=== PATIENT | female | born 1965 | race Hispanic/Latino ===

== ENCOUNTER 2017-06-12 07:41 | Outpatient (CLI) | payer OTHER ==
--- NOTE | 2017-06-12 08:40 | MMO ---
BILATERAL SCREENING MAMMOGRAM: DATE: 06/12/17 HISTORY: 51-year-old female for screening mammography. COMPARISON: 03/19/16, 03/11/15, 03/08/14. FINDINGS: Bilateral MLO and CC views of the breasts show heterogeneously dense breast parenchyma, which may low er the sensitivity of mammography. Biopsy clips are seen in the right breast. There is no evidence of suspicious mass, suspicious cluster of microcalcifications, or area of architectural distortion. Interpretation of this mammogram was performed with the assistance of computer-aided detection. IMPRESSION: BIRADS 2: Benign Finding(s) Annual screening mammography is recommended. POS: SIVAKUMAR
== END 2017-06-12 07:42 | disposition home or self-care (01) ==
LOC: SCSMAMMO 07:41
PROVIDERS: ATTEND Family Medicine
DX: Z12.31 Encounter for screening mammogram for malignant neoplasm of breast (principal)
CPT/HCPCS: 77067; G0202

== ENCOUNTER 2017-10-08 11:31 | Outpatient (CLI) | payer OTHER ==
--- NOTE | 2017-10-09 12:05 | CT ---
CT ABDOMEN AND PELVIS NONCONTRAST: 10/09/2017 HISTORY: Hematuria. COMPARISON: 05/26/2016 FINDINGS: There is a small left pleural effusion, which is an interval change from the prior exam, with associa elier mild passive atelectasis. There is minimal patchy parenchymal and slight linear and reticulonodu lar densities at right lung base, which could be related to pneumonitis. Post cholecystectomy changes are noted. There is a nonobstructing, approximately 3 mm calculus in the superior pole right kidney. There are two approximately 3 mm, nonobstructing, superior pole right renal calculi. No additional renal calcu li are seen bilaterally, and there is no evidence of a ureteral calculus. There has been interval development of a hypodense, exophytic inferior pole cystic lesion, measuring 4.7 cm, which, on noncontrast imaging, does demonstrate fluid attenuation and likely represents a jere al cyst. There is a subcentimeter, [id number], hypodense lesion of the superior pole left kidney with a slightly larger hypodense lesion within the mid portion left kidney, which measure s 1.8 cm, and also demonstrates fluid attenuation on the pre-contrast imaging, suggesting a cyst. There is no hydronephrosis present. The liver, spleen, pancreas, right adrenal glands, and urinary bladder demonstrate a grossly normal n onenhanced CT appearance. A 1.8 cm left adrenal nodule is now seen on this examination, which was not seen on the prior study; however, this does demonstrate an attenuation coefficient, most suggestive of an adrenal adenoma. There is colonic diverticulosis. The appendix is visualized and is normal in caliber. There is a small amount of retained fecal material seen throughout the colon. The uterus is not visualized, likely related to a hysterectomy. Vascular calcifications are present in the abdominal aorta and iliac arteries. Mild degenerative changes are seen in the spine. IMPRESSION: 1. Interval development of a small left pleural effusion. 2. Minimal patchy and slight reticulonodular densities at the right lung base, which may be related to an infectious or inflammatory process. Clinical correlation is suggested. 3. No renal or ureteral calculi are seen bilaterally. 4. Interval development of hypodense left renal lesions, the largest of which demonstrate fluid atte nuation, likely related to renal cysts. 5. Left adrenal adenoma. 6. Nonobstructing right renal calculus. There is no ureteral calculus seen bilaterally, and there i s no hydronephrosis. 7. Colonic diverticulosis. 8. Ventral abdominal wall hernia, at the level of the umbilicus, which does contain a loop of small bowel, but there are no findings to suggest a bowel obstruction. This was not seen on prior exam. POS: RUDDY
== END 2017-10-08 11:32 | disposition home or self-care (01) ==
LOC: BICCT 11:31
PROVIDERS: ATTEND Physician Assistant
DX: R10.9 Unspecified abdominal pain (principal); N20.0 Calculus of kidney; N28.89 Other specified disorders of kidney and ureter; D35.02 Benign neoplasm of left adrenal gland; K57.30 Diverticulosis of large intestine without perforation or abscess without bleeding; K43.9 Ventral hernia without obstruction or gangrene; J90 Pleural effusion, not elsewhere classified; J98.4 Other disorders of lung
CPT/HCPCS: 74176

== ENCOUNTER 2017-12-27 13:15 | Outpatient (CLI) | payer OTHER | END 2017-12-27 13:16 | disposition home or self-care (01) | LOC: BICMAMMO 13:15 | PROVIDERS: ATTEND Physician Assistant | DX: N63.10 Unspecified lump in the right breast, unspecified quadrant (principal); Z80.3 Family history of malignant neoplasm of breast | CPT/HCPCS: G0279 ==

== ENCOUNTER 2019-04-02 12:33 | Outpatient (CLI) | payer OTHER ==
--- NOTE | 2019-04-03 08:49 | MMO ---
Bilateral MAMMO Bilat Screen [facility]. CLINICAL HISTORY: Patient is 53 years old and is seen for screening. The patient has the following family history of breast cancer: mother, at age 50, malignant (generic). The patient has no personal history of cancer. The patient has a history of right Ultrasound Guided Core Biopsy in 2013 - benign. VIEWS: The views performed were: bilateral craniocaudal with tomosynthesis and bilateral mediolateral oblique with tomosynthesis. FILMS COMPARED: The present examination has been compared to a prior imaging study performed at [facility] on 12/27/2017. This study has been interpreted with the assistance of computer-aided detection. MAMMOGRAM FINDINGS: There are scattered fibroglandular densities. There are no suspicious masses, suspicious calcifications, or new areas of architectural distortion. IMPRESSION: THERE IS NO MAMMOGRAPHIC EVIDENCE OF MALIGNANCY. A ROUTINE FOLLOW-UP MAMMOGRAM IN 1 YEAR IS RECOMMENDED. THE RESULTS OF THIS EXAM WERE SENT TO THE PATIENT. ACR BI-RADS Category 1 - Negative MAMMOGRAPHY NOTE: 1. A negative mammogram report should not delay a biopsy if a dominant of clinically suspicious mass is present. 2. Approximately 10% to 15% of breast cancers are not detected by mammography. 3. Adenosis and dense breasts may obscure an underlying neoplasm. Reported by: Thu CARCAMO Electonically Signed: [id number]
== END 2019-04-02 12:34 | disposition home or self-care (01) ==
LOC: BICMAMMO 12:33
PROVIDERS: ATTEND Family Medicine
DX: Z12.31 Encounter for screening mammogram for malignant neoplasm of breast (principal); Z80.3 Family history of malignant neoplasm of breast; Z91.89 Other specified personal risk factors, not elsewhere classified
CPT/HCPCS: 77063; 77067

== ENCOUNTER 2020-04-06 15:28 | Outpatient (CLI) | payer OTHER ==
--- NOTE | 2020-04-06 16:15 | MMO ---
Bilateral MAMMO Bilat Screen [facility]. CLINICAL HISTORY: Patient is 54 years old and is seen for screening. The patient has the following family history of breast cancer: mother, at age 50, malignant (generic). The patient has no personal history of cancer. The patient has a history of right Ultrasound Guided Core Biopsy in 2013 - benign. VIEWS: The views performed were: bilateral craniocaudal with tomosynthesis and bilateral mediolateral oblique with tomosynthesis. FILMS COMPARED: The present examination has been compared to prior imaging studies performed at [facility] on 03/19/2016 and 06/12/2017, and at [facility] on 12/27/2017 and 04/02/2019. This study has been interpreted with the assistance of computer-aided detection. MAMMOGRAM FINDINGS: There are scattered fibroglandular densities. Finding 1: There are stable benign appearing calcifications seen in both breasts. Finding 2: There are stable post operative changes seen in the right breast. There are no suspicious masses, suspicious calcifications, or new areas of architectural distortion. IMPRESSION: THERE IS NO MAMMOGRAPHIC EVIDENCE OF MALIGNANCY. A ROUTINE FOLLOW-UP MAMMOGRAM IN 1 YEAR IS RECOMMENDED. THE RESULTS OF THIS EXAM WERE SENT TO THE PATIENT. ACR BI-RADS Category 2 - Benign finding MAMMOGRAPHY NOTE: 1. A negative mammogram report should not delay a biopsy if a dominant of clinically suspicious mass is present. 2. Approximately 10% to 15% of breast cancers are not detected by mammography. 3. Adenosis and dense breasts may obscure an underlying neoplasm. Reported by: ANDREW BACA MD Electonically Signed: [id number]
== END 2020-04-06 15:29 | disposition home or self-care (01) ==
LOC: BICMAMMO 15:28
PROVIDERS: ATTEND Physician Assistant
DX: Z12.31 Encounter for screening mammogram for malignant neoplasm of breast (principal); Z91.89 Other specified personal risk factors, not elsewhere classified; Z80.3 Family history of malignant neoplasm of breast
CPT/HCPCS: 77063; 77067

== ENCOUNTER 2021-04-20 15:04 | Outpatient (CLI) | payer OTHER | END 2021-04-20 15:05 | disposition home or self-care (01) | LOC: BICMAMMO 15:04 | PROVIDERS: ATTEND Physician Assistant | DX: Z12.31 Encounter for screening mammogram for malignant neoplasm of breast (principal); Z91.89 Other specified personal risk factors, not elsewhere classified; Z80.3 Family history of malignant neoplasm of breast | CPT/HCPCS: 77063; 77067 ==

== ENCOUNTER 2022-04-30 07:43 | Outpatient (CLI) | payer BC | END 2022-04-30 07:44 | disposition home or self-care (01) | LOC: BICMAMMO 07:43 | PROVIDERS: ATTEND Physician Assistant | DX: Z12.31 Encounter for screening mammogram for malignant neoplasm of breast (principal); Z80.3 Family history of malignant neoplasm of breast; Z91.89 Other specified personal risk factors, not elsewhere classified | CPT/HCPCS: 77063; 77067 ==

== ENCOUNTER 2023-05-01 07:58 | Outpatient (CLI) | payer BC | END 2023-05-01 07:59 | disposition home or self-care (01) | LOC: BICMAMMO 07:58 | PROVIDERS: ATTEND Physician Assistant | DX: Z12.31 Encounter for screening mammogram for malignant neoplasm of breast (principal); Z80.3 Family history of malignant neoplasm of breast; Z91.89 Other specified personal risk factors, not elsewhere classified | CPT/HCPCS: 77063; 77067 ==

== ENCOUNTER 2024-01-21 08:30 | Outpatient (CLI) | payer BC ==
[2024-01-21 09:46] LABS: #Basophils 0.01 10x3/uL (0.0-0.2); #Eosinphils 0.04 10x3/uL (0.0-0.5); %Basophils 0.3 % (0.0-2.0); %Eosinophils 1.2 % (0.0-6.0); %Lymphocytes 29.8 % (18.0-47.0); %Monocytes 11.9 % (0.0-10.0); %Neutrophils 56.5 % (40.0-75.0); Hematocrit 38.6 % (34.9-44.5); Mean Corpuscular HGB CONC 33.7 g/dL (32.0-36.0); Mean Corpuscular Hemoglobin 30.7 pg (27.0-33.0); Mean Corpuscular Volume 91.3 fL (81.6-98.3); Mean Platelet Volume 11.9 fL (7.4-10.4); Platelet Count 153 10x3/uL (150-450); RBC Distribution Width 12.9 % (11.5-14.5); Red Blood Cell (RBC) Count 4.23 10x6/uL (3.90-5.03); White Blood Cell (WBC) Count 3.4 10x3/uL (3.5-10.5)
[2024-01-21 10:28] LABS: Anion Gap 15 mmol/L (10-20); BUN (Urea Nitrogen) 12 mg/dL (9.8-20.1); Calc. Creatinine Clearance 0 mL/min (70-130); Calcium 9.2 mg/dL (7.8-10.44); Carbon Dioxide 25 mmol/L (22-29); Chloride 103 mmol/L (98-107); Estimated GFR 93; Glucose 96 mg/dL (70-105); Potassium 3.7 mmol/L (3.5-5.1); Sodium 139 mmol/L (136-145)
== END 2024-01-21 08:31 | disposition home or self-care (01) ==
LOC: LABBT 08:30
PROVIDERS: ATTEND Specialist
DX: Z01.818 Encounter for other preprocedural examination (principal); C50.911 Malignant neoplasm of unspecified site of right female breast
CPT/HCPCS: 80048; 85025; 93005; 93010

== ENCOUNTER 2024-01-23 08:29 | Day surgery (SDC) | payer BC ==
[2024-01-23] MEDS ORDERED: PROPOFOL 20 ML ONE (11:14)
[2024-01-23] MEDS ORDERED: Ketorolac Tromethamine 30 MG (1 mL) VIAL ONE (11:14)
[2024-01-23] MEDS ORDERED: Acetaminophen 500 MG TAB ONE (11:14)
[2024-01-23] MEDS ORDERED: Lidocaine 2% PF 5 ML VIAL ONE (11:14)
[2024-01-23] MEDS ORDERED: Midazolam HCl 2 mg/2 ml Vial ONE ×2 (11:49→11:50)
[2024-01-23] MEDS ORDERED: Isosulfan Blue 50 MG/5 ML VIAL ONE (11:50)
[2024-01-23] MEDS ORDERED: EPINEPHrine 1 MG/ML VIAL ONE (11:50)
[2024-01-23] MEDS ORDERED: Bupivacaine 0.25% HCL 30 ML VIAL ONE (11:50)
[2024-01-23] MEDS ORDERED: fentaNYL PF 100 MCG/2 ML SYRINGE ONE ×2 (11:50→13:27)
[2024-01-23] MEDS ORDERED: CEFAZOLIN 2 GM VIAL ONE (11:57)
[2024-01-23] MEDS ORDERED: Sodium Chloride 0.9% 100 ML ONE (11:57)
[2024-01-23] MEDS ORDERED: Lidocaine 1% (PF) 30 ML VIAL ONE (12:12)
[2024-01-23] MEDS ORDERED: Ondansetron PF 4 MG/2 ML Vial ONE (12:13)
[2024-01-23] MEDS ORDERED: Dexamethasone 4 mg/ml Vial ONE (12:13)
[2024-01-23] MEDS ORDERED: PHENYLEPHRINE-NS 100 MCG/ML 10 ML SYRINGE ONE (12:27)
[2024-01-23] MEDS ORDERED: ePHEDrine Sulfate 50 MG/10 ML VIAL ONE (12:33)
== END 2024-01-23 17:15 | disposition home or self-care (01) ==
LOC: NM 08:29
PROVIDERS: ATTEND Specialist
DX: C50.411 Malignant neoplasm of upper-outer quadrant of right female breast (principal); E78.5 Hyperlipidemia, unspecified; Z79.899 Other long term (current) drug therapy; Z90.710 Acquired absence of both cervix and uterus; Z98.890 Other specified postprocedural states
CPT/HCPCS: 71045; 78195; 88307; A9541; C1713; C1788; J0171; J0665; J1100; J1642; J1885; J2001; J2250; J2405; J2704; Q9968

== ENCOUNTER 2024-06-09 07:56 | Outpatient (CLI) | payer BC ==
[2024-06-09 09:25] LABS: #Basophils Less than 0.03 10x3/uL (0.0-0.2); %Basophils 0.3 % (0.0-1.0); %Eosinophils 2.5 % (0.0-10.0); %Lymphocytes 31.2 % (21.0-51.0); %Monocytes 6.1 % (0.0-10.0); %Neutrophils 59.6 % (42.0-75.0); Hematocrit 38.2 % (36.0-47.0); Hemoglobin 12.2 g/dL (12.0-16.0); Mean Corpuscular HGB CONC 31.9 g/dL (32.0-36.0); Mean Corpuscular Hemoglobin 30.9 pg (27.0-31.0); Mean Corpuscular Volume 96.7 fL (78.0-98.0); Mean Platelet Volume 11.8 fL (7.4-10.4); Platelet Count 151 10x3/uL (130-400); RBC Distribution Width 13.4 % (11.5-14.5); Red Blood Cell (RBC) Count 3.95 mill/uL (4.20-5.40)
[2024-06-09 09:39] LABS: Anion Gap 12 mmol/L (10-20); BUN (Urea Nitrogen) 12 mg/dL (9.8-20.1); Calc. Creatinine Clearance 0 mL/min (70-130); Carbon Dioxide 28 mmol/L (22-29); Chloride 107 mmol/L (98-107); Estimated GFR 103; Glucose 111 mg/dL (70-105); Sodium 143 mmol/L (136-145)
== END 2024-06-09 07:57 | disposition home or self-care (01) ==
LOC: LABBT 07:56
PROVIDERS: ATTEND Specialist
DX: Z01.812 Encounter for preprocedural laboratory examination (principal)
CPT/HCPCS: 80048; 85025; 93005; 93010

== ENCOUNTER 2024-06-12 10:31 | Day surgery (SDC) | payer BC ==
[2024-06-09 08:21] VITALS: BMI 29.6
[2024-06-12] MEDS ORDERED: Acetaminophen 500 MG TAB ONE (11:21)
[2024-06-12] MEDS ORDERED: EPINEPHrine 1 MG/ML VIAL ONE (11:44)
[2024-06-12] MEDS ORDERED: Bupivacaine 0.25% HCL 30 ML VIAL ONE (11:44)
[2024-06-12] MEDS ORDERED: Lidocaine 1% (PF) 30 ML VIAL ONE (11:45)
[2024-06-12] MEDS ORDERED: CEFAZOLIN 2 GM VIAL ONE (11:54)
[2024-06-12] MEDS ORDERED: Ketorolac Tromethamine 30 MG (1 mL) VIAL ONE (11:54)
[2024-06-12] MEDS ORDERED: Heparin 5,000 UNITS/ML VIAL ONE (11:55)
[2024-06-12] MEDS ORDERED: Tranexamic Acid 1,000 MG/10 ML VIAL ONE (12:17)
[2024-06-12] MEDS ORDERED: fentaNYL PF 100 MCG/2 ML SYRINGE ONE (12:27)
[2024-06-12] MEDS ORDERED: Lidocaine 2% PF 5 ML VIAL ONE (12:27)
[2024-06-12] MEDS ORDERED: PROPOFOL 20 ML ONE (12:27)
[2024-06-12] MEDS ORDERED: Midazolam HCl 2 mg/2 ml Vial ONE (12:28)
[2024-06-12] MEDS ORDERED: Ketamine In 0.9 % NaCl 50 MG/5 ML SYRINGE ONE (12:29)
[2024-06-12] MEDS ORDERED: Ondansetron PF 4 MG/2 ML Vial ONE (12:59)
[2024-06-12] MEDS ORDERED: Dexamethasone 4 mg/ml Vial ONE (12:59)
[2024-06-12] MEDS ORDERED: diphenhydrAMINE 50 MG/ML VIAL ONE (12:59)
[2024-06-12] MEDS ORDERED: SUGAMMADEX SODIUM 200 MG/2 ML VIAL ONE (13:05)
[2024-06-12] MEDS ORDERED: PHENYLEPHRINE-NS 100 MCG/ML 10 ML SYRINGE ONE (13:09)
[2024-06-12] MEDS ORDERED: Albuterol HFA (OR) 200 PUFF INH ONE (13:09)
[2024-06-12] MEDS ORDERED: Indocyanine Green 25 MG/10 ML VIAL ONE (13:09)
[2024-06-12] MEDS ORDERED: ePHEDrine Sulfate 50 MG/10 ML VIAL ONE (14:40)
== END 2024-06-12 17:25 | disposition home or self-care (01) ==
LOC: SDC 10:31
PROVIDERS: ATTEND Specialist
PROC: 0HRV37Z Replacement of Bilateral Breast with Autologous Tissue Substitute, Percutaneous Approach (ICD-10-PCS; principal; 2024-06-12)
PROC: 0JPT3XZ Removal of Tunneled Vascular Access Device from Trunk Subcutaneous Tissue and Fascia, Percutaneous Approach (ICD-10-PCS; principal; 2024-06-12)
DX: C50.911 Malignant neoplasm of unspecified site of right female breast (principal); N60.82 Other benign mammary dysplasias of left breast; N60.42 Mammary duct ectasia of left breast; R92.1 Mammographic calcification found on diagnostic imaging of breast; N60.11 Diffuse cystic mastopathy of right breast; Z79.899 Other long term (current) drug therapy; I10 Essential (primary) hypertension; Z98.890 Other specified postprocedural states
CPT/HCPCS: 88307; J0171; J0665; J1100; J1200; J1644; J1885; J2250; J2405; J2704; J3490